=== PATIENT | male | born 1995 | race African-American/Black ===

== ENCOUNTER 2020-10-27 22:39 | Emergency (ER) | payer OTHER ==
[~2020-10-27] VITALS: Ht 177.8 cm; Wt 70.5 kg
[2020-10-27] MEDS ORDERED: KEFLEX500 MG PO (23:57)
[2020-10-27] MEDS ORDERED: MOTRIN800 MG PO (23:57)
[2020-10-28 00:15] VITALS: BP 128/62
== END 2020-10-28 00:17 | disposition home or self-care (01) | DRG 605 ==
LOC: ED 22:39
PROC: 0HQLXZZ Repair Left Lower Leg Skin, External Approach (ICD-10-PCS; principal; 2020-10-27)
DX: S80.811A Abrasion, right lower leg, initial encounter (principal); S61.412A Laceration without foreign body of left hand, initial encounter; S20.222A Contusion of left back wall of thorax, initial encounter; V48.5XXA Car driver injured in noncollision transport accident in traffic accident, initial encounter

== ENCOUNTER 2020-11-07 19:19 | Emergency (ER) | payer OTHER ==
[~2020-11-07] VITALS: Ht 177.8 cm; Wt 71.0 kg
[~2020-11-07 19:19] MED LIST: KEFLEX500 MG PO; MOTRIN800 MG PO
[2020-11-07 19:58] VITALS: BP 107/68
== END 2020-11-07 19:58 | disposition home or self-care (01) | DRG 950 ==
LOC: ED 19:19
DX: S61.412D Laceration without foreign body of left hand, subsequent encounter (principal); X58.XXXD Exposure to other specified factors, subsequent encounter